=== PATIENT | male | born 1960 | race Caucasian/White ===

== ENCOUNTER 2017-12-29 15:43 | Observation (INO) | END 2017-12-31 14:00 | disposition home or self-care (01) ==

== ENCOUNTER 2018-01-11 14:55 | Inpatient (IN) | END 2018-01-14 16:46 | disposition home health service (06) | DRG 920 ==

== ENCOUNTER 2018-02-10 13:02 | Day surgery (SDC) | END 2018-02-11 16:55 | disposition home or self-care (01) ==